=== PATIENT | female | born 1975 | race Caucasian/White ===

== ENCOUNTER 2021-06-19 12:36 | Emergency (ER) | payer OTHER, SELFPAY ==
[2021-06-19 13:02] VITALS: BP 150/91; PULSE 121; RESP 22; TEMP 36.7; O2SAT 99
== END 2021-06-19 14:34 | disposition left against medical advice (07) ==
LOC: EXPBETH 12:41
PROVIDERS: Emergency Provider Nurse Practitioner; PCP Nurse Practitioner Family
DX: Z53.21 Procedure and treatment not carried out due to patient leaving prior to being seen by health care provider (principal)
CPT/HCPCS: 99199